=== PATIENT | male | born 1980 | race African-American/Black ===

== ENCOUNTER 2017-04-11 08:56 | Emergency (ER) | payer OTHER ==
[~2017-04-11] VITALS: Ht 182.9 cm; Wt 81.0 kg
[2017-04-11] MEDS ORDERED: HALOPERIDOL 5 MG INJ IM STA (09:19)
[2017-04-11] MEDS ORDERED: LORAZEPAM 2 MG INJ IM STA (09:19)
--- NOTE | 2017-04-11 09:20 | ERA ---
ER Documentation Chief Complaint Date/Time DATE: 04/11/17 TIME: 09:20 Chief Complaint HPI Patient is uncooperative and history is obtained primarily from [employer] and transferring paramedics. 36-year-old male brought to the ED and [employer] custody after he was found running the streets agitated, combative and uncooperative requiring restraints.Will not answer any questions. ROS Review of system is unobtainable due to the patient's clinical condition. PMhx/Soc Unknown FmHx Unknown Physical Exam Vitals Vital Signs Date Time Temp Pulse Resp B/P Pulse Ox O2 Delivery O2 Flow Rate FiO2 04/11/17 09:27 98.5 98 18 184/84 99 Room Air Physical Exam Const: Alert, agitated, combative Head: Atraumatic Eyes: Normal Conjunctiva ENT: Normal External Ears, Nose and Mouth. Neck: Full range of motion. No meningismus. Resp: Clear to auscultation bilaterally Cardio: Regular rate and rhythm, no murmurs Abd: Soft, non tender, non distended. Normal bowel sounds Skin: No petechiae or rashes Back: No midline or flank tenderness Ext: No cyanosis, or edema Neur: Awake and alert. Moves all extremities with 5/5 strength. No facial droop Psych: Agitated, combative and responding to internal stimuli Result Diagram: 04/11/17 1111 04/11/17 1111 Results 24 hrs Laboratory Tests Test 04/11/17 11:11 04/11/17 14:00 White Blood Count 8.110^3/ul Red Blood Count 4.2310^6/ul Hemoglobin 12.4g/dl Hematocrit 37.1% Mean Corpuscular Volume 87.7fl Mean Corpuscular Hemoglobin 29.3pg Mean Corpuscular Hemoglobin Concent 33.4g/dl Red Cell Distribution Width 14.3% Platelet Count 96243^3/UL Mean Platelet Volume 8.9fl Neutrophils % 70.6% Lymphocytes % 22.7% Monocytes % 4.9% Eosinophils % 0.7% Basophils % 0.9% Nucleated Red Blood Cells % 0.0/100WBC Neutrophils # 5.710^3/ul Lymphocytes # 1.810^3/ul Monocytes # 0.410^3/ul Eosinophils # 0.110^3/ul Basophils # 0.110^3/ul Nucleated Red Blood Cells # 0.010^3/ul Sodium Level 141mmol/L Potassium Level 3.8mmol/L Chloride Level 101mmol/L Carbon Dioxide Level 27mmol/L Anion Gap 17 Blood Urea Nitrogen 11mg/dl Creatinine 0.69mg/dl Glucose Level 86mg/dl Calcium Level 9.2mg/dl Total Bilirubin 0.4mg/dl Direct Bilirubin 0.00mg/dl Indirect Bilirubin 0.4mg/dl Aspartate Amino Transf (AST/SGOT) 36IU/L Alanine Aminotransferase (ALT/SGPT) 42IU/L Alkaline Phosphatase 87IU/L Total Protein 7.3g/dl Albumin 4.2g/dl Globulin 3.10g/dl Albumin/Globulin Ratio 1.35 Thyroid Stimulating Hormone (TSH) 4.200MIU/L Salicylates Level < 1.0mg/dl Acetaminophen Level < 10.0ug/ml Ethyl Alcohol Level < 10.0mg/dl Urine Color YELLOW Urine Clarity CLEAR Urine pH 6.0 Urine Specific [place] 1.017 Urine Ketones NEGATIVEmg/dL Urine Nitrite NEGATIVEmg/dL Urine Bilirubin NEGATIVEmg/dL Urine Urobilinogen NEGATIVEmg/dL Urine Leukocyte Esterase NEGATIVELeu/ul Urine Hemoglobin NEGATIVEmg/dL Urine Glucose NEGATIVEmg/dL Urine Total Protein NEGATIVEmg/dl Urine Opiates Screen Negative Urine Barbiturates Negative Urine Amphetamines Screen POSITIVE Urine Benzodiazepines Screen Negative Urine Cocaine Screen Negative Urine Cannabinoids Negative Current Medications Medications (Trade) Dose Ordered Sig/Manish Route PRN Reason Start Time Stop Time Status Last Admin Dose Admin Lorazepam (Ativan) 2 mg ONCE STAT IM 04/11/17 09:19 04/11/17 09:21 DC 04/11/17 09:37 Haloperidol (Haldol) 5 mg ONCE STAT IM 04/11/17 09:19 04/11/17 09:21 DC 04/11/17 09:36 Benztropine Mesylate (Cogentin) 2 mg ONCE ONCE IM 04/11/17 09:30 04/11/17 09:31 DC Procedures/MDM DOCUMENTS REVIEWED: ED nurse no prior records ED COURSE: Patient agitated and combative required physical and chemical restraints. REEXAMINATION/REEVALUATION: Time: 11:00. Sleeping but arousable. Time: 13:45. Arousable and provided a urine sample but still uncooperative with exam. Time: 14:45. Still lethargic and unable to cooperate with psychiatric evaluation. MEDICAL DECISION MAKIN-year-old male brought to the ED and [employer] custody after he was found running the streets agitated, combative and uncooperative requiring restraints. Patient presents with acute psychosis and methamphetamine intoxication. Based on history, physical exam and appropriate lab tests, I appreciate no evidence of significant life threatening injury or illness that precludes psychiatric hospitalization. There are no toxic, infectious, metabolic, CLINICAL RESEARCH NURSE or other unstable co-morbidities. Patient is thus medically clear for psychiatric evaluation. OBSERVATION NOTE: At 09:45 the patient was entered into observation status to establish the need for admission. During this time the patient was treated for acute psychosis. Additionally, extensive evaluation including, CBC, chemistry, urinalysis and urine drug screen were preformed and results interpreted as above. Vitals signs were monitored and multiple repeat exams were performed. At 14:45 the patient was reexamined; VSS, afebrile, but still lethargic and unable to cooperate with psychiatric evaluation. Based on these findings the patient will require ongoing observation to determine the need for admission. Cares endorsed to Dr. Yao. CALLS/CONSULTS: Time 11:30, Dr. Villarreal, Telehealth Psychiatry. Unable to evaluate the patient at this time. Will attempt again. PATIENT CARE TRANSITIONED: Time: 15:00, Dr. Cabral. Departure Diagnosis: Primary Impression: Acute psychosis Additional Impression: Methamphetamine abuse Condition: Serious MARIANNA ROSE MD Apr 11, 2017 09:20
[2017-04-11 09:25] VITALS: Ht 182.9 cm; Wt 81.0 kg
[2017-04-11] MEDS ORDERED: BENZTROPINE 2 MG INJ IM ONE (09:30)
[2017-04-11 11:24] LABS: BASOPHIL # 0.1 10^3/ul (0.0-0.1); BASOPHILS % 0.9 % (0.0-2.0); EOSINOPHILS # 0.1 10^3/ul (0.0-0.5); EOSINOPHILS % 0.7 % (0.0-7.0); HEMATOCRIT 37.1 % (42.0-52.0); HEMOGLOBIN 12.4 g/dl (14.0-18.0); LYMPHOCYTES # 1.8 10^3/ul (0.8-2.9); LYMPHOCYTES % 22.7 % (15.0-51.0); MEAN CORPUSCULAR HEMOGLOBIN 29.3 pg (29.0-33.0); MEAN CORPUSCULAR HGB CONC 33.4 g/dl (32.0-37.0); MEAN CORPUSCULAR VOLUME 87.7 fl (82.0-101.0); MEAN PLATELET VOLUME 8.9 fl (7.4-10.4); MONOCYTE # 0.4 10^3/ul (0.3-0.9); MONOCYTES % 4.9 % (0.0-11.0); NEUTROPHIL # 5.7 10^3/ul (1.6-7.5); NEUTROPHILS % 70.6 % (39.0-77.0); PLATELET COUNT 332 10^3/UL (140-415); RED BLOOD COUNT 4.23 10^6/ul (4.70-6.10); RED CELL DISTRIBUTION WIDTH 14.3 % (11.5-14.5); WHITE BLOOD COUNT 8.1 10^3/ul (4.8-10.8)
[2017-04-11 11:47] LABS: ALANINE AMINOTRANSFERASE 42 IU/L (13-69); ALBUMIN 4.2 g/dl (3.3-4.9); ALBUMIN/GLOBULIN RATIO 1.35; ALKALINE PHOSPHATASE 87 IU/L (42-121); ANION GAP 17 (8-16); ASPARTATE AMINO TRANSFERASE 36 IU/L (15-46); BILIRUBIN,INDIRECT 0.4 mg/dl (0-1.1); BILIRUBIN,TOTAL 0.4 mg/dl (0.2-1.3); BLOOD UREA NITROGEN 11 mg/dl (7-20); CALCIUM 9.2 mg/dl (8.4-10.2); CARBON DIOXIDE 27 mmol/L (21-31); CHLORIDE 101 mmol/L (97-110); CREATININE 0.69 mg/dl (0.61-1.24); GLUCOSE 86 mg/dl (70-220); POTASSIUM 3.8 mmol/L (3.5-5.1); SODIUM 141 mmol/L (135-144); TOTAL PROTEIN 7.3 g/dl (6.1-8.1)
[2017-04-11 11:59] LABS: ACETAMINOPHEN < 10.0 ug/ml (10.0-30.0); SALICYLATE < 1.0 mg/dl (5.0-30.0)
[2017-04-11 12:00] LABS: ETHANOL < 10.0 mg/dl
--- NOTE | 2017-04-11 12:52 | PSY ---
Date/Time of Note Date/Time of Note DATE: 04/11/17 TIME: 12:50 Psychiatric Subjective Eval Consent Pt consented to telemedicine: Yes Subjective Evaluation Patient location: emergency Chief Complaint: [employer] police on hold for running through streets Reason for consult: psychosis, agitation History of present illness d/w Dr Murphy. Pt was BIB EMS confused and combative, had to be chemically restrained. Pt is alseep, snoring loudly, RN tried to wake him up but to no avail. Please call back then the pt will be fully awake, alert and cooperative with the eval. Psychiatric Objective Eval Mental Status Examination: Laboratory Results Laboratory Tests Test 04/11/17 11:11 White Blood Count 8.110^3/ul Red Blood Count 4.2310^6/ul Hemoglobin 12.4g/dl Hematocrit 37.1% Mean Corpuscular Volume 87.7fl Mean Corpuscular Hemoglobin 29.3pg Mean Corpuscular Hemoglobin Concent 33.4g/dl Red Cell Distribution Width 14.3% Platelet Count 47343^3/UL Mean Platelet Volume 8.9fl Neutrophils % 70.6% Lymphocytes % 22.7% Monocytes % 4.9% Eosinophils % 0.7% Basophils % 0.9% Nucleated Red Blood Cells % 0.0/100WBC Neutrophils # 5.710^3/ul Lymphocytes # 1.810^3/ul Monocytes # 0.410^3/ul Eosinophils # 0.110^3/ul Basophils # 0.110^3/ul Nucleated Red Blood Cells # 0.010^3/ul Sodium Level 141mmol/L Potassium Level 3.8mmol/L Chloride Level 101mmol/L Carbon Dioxide Level 27mmol/L Anion Gap 17 Blood Urea Nitrogen 11mg/dl Creatinine 0.69mg/dl Glucose Level 86mg/dl Calcium Level 9.2mg/dl Total Bilirubin 0.4mg/dl Direct Bilirubin 0.00mg/dl Indirect Bilirubin 0.4mg/dl Aspartate Amino Transf (AST/SGOT) 36IU/L Alanine Aminotransferase (ALT/SGPT) 42IU/L Alkaline Phosphatase 87IU/L Total Protein 7.3g/dl Albumin 4.2g/dl Globulin 3.10g/dl Albumin/Globulin Ratio 1.35 Thyroid Stimulating Hormone (TSH) 4.200MIU/L Salicylates Level < 1.0mg/dl Acetaminophen Level < 10.0ug/ml Ethyl Alcohol Level < 10.0mg/dl ANDREAS HUITRON MD Apr 11, 2017 12:52
[2017-04-11 14:56] LABS: ADD UMIC NO; UR ASCORBIC ACID NEGATIVE (NEGATIVE); UR BILIRUBIN (Dip) NEGATIVE (NEGATIVE); UR BLOOD (Dip) NEGATIVE (NEGATIVE); UR CLARITY CLEAR (CLEAR); UR COLOR YELLOW (YELLOW); UR GLUCOSE (Dip) NEGATIVE (NEGATIVE); UR KETONES (Dip) NEGATIVE (NEGATIVE); UR LEUKOCYTE ESTERASE (Dip) NEGATIVE Leu/ul (NEGATIVE); UR NITRITE (Dip) NEGATIVE (NEGATIVE); UR SPECIFIC GRAVITY (Dip) 1.017 (1.003-1.030); UR TOTAL PROTEIN (Dip) NEGATIVE (NEGATIVE); UR UROBILINOGEN (Dip) NEGATIVE (NEGATIVE)
[2017-04-11 15:30] LABS: BARBITURATES Negative (NEGATIVE); BENZODIAZEPINES Negative (NEGATIVE); CANNABINOIDS Negative (NEGATIVE); COCAINE Negative (NEGATIVE); OPIATES Negative (NEGATIVE)
--- NOTE | 2017-04-11 22:46 | PSY ---
Date/Time of Note Date/Time of Note DATE: 04/11/17 TIME: 22:40 Psychiatric Subjective Eval Consent Pt consented to telemedicine: Yes Subjective Evaluation Patient location: emergency Chief Complaint: [employer] on hold for running through streets Reason for consult: psychosis, agitation Medical history Problems Medical Problems: (1) Acute psychosis Status: Acute Psychiatric Objective Eval Mental Status Examination: Laboratory Results Laboratory Tests Test 04/11/17 11:11 04/11/17 14:00 White Blood Count 8.110^3/ul Red Blood Count 4.2310^6/ul Hemoglobin 12.4g/dl Hematocrit 37.1% Mean Corpuscular Volume 87.7fl Mean Corpuscular Hemoglobin 29.3pg Mean Corpuscular Hemoglobin Concent 33.4g/dl Red Cell Distribution Width 14.3% Platelet Count 32814^3/UL Mean Platelet Volume 8.9fl Neutrophils % 70.6% Lymphocytes % 22.7% Monocytes % 4.9% Eosinophils % 0.7% Basophils % 0.9% Nucleated Red Blood Cells % 0.0/100WBC Neutrophils # 5.710^3/ul Lymphocytes # 1.810^3/ul Monocytes # 0.410^3/ul Eosinophils # 0.110^3/ul Basophils # 0.110^3/ul Nucleated Red Blood Cells # 0.010^3/ul Sodium Level 141mmol/L Potassium Level 3.8mmol/L Chloride Level 101mmol/L Carbon Dioxide Level 27mmol/L Anion Gap 17 Blood Urea Nitrogen 11mg/dl Creatinine 0.69mg/dl Glucose Level 86mg/dl Calcium Level 9.2mg/dl Total Bilirubin 0.4mg/dl Direct Bilirubin 0.00mg/dl Indirect Bilirubin 0.4mg/dl Aspartate Amino Transf (AST/SGOT) 36IU/L Alanine Aminotransferase (ALT/SGPT) 42IU/L Alkaline Phosphatase 87IU/L Total Protein 7.3g/dl Albumin 4.2g/dl Globulin 3.10g/dl Albumin/Globulin Ratio 1.35 Thyroid Stimulating Hormone (TSH) 4.200MIU/L Salicylates Level < 1.0mg/dl Acetaminophen Level < 10.0ug/ml Ethyl Alcohol Level < 10.0mg/dl Urine Color YELLOW Urine Clarity CLEAR Urine pH 6.0 Urine Specific [place] 1.017 Urine Ketones NEGATIVEmg/dL Urine Nitrite NEGATIVEmg/dL Urine Bilirubin NEGATIVEmg/dL Urine Urobilinogen NEGATIVEmg/dL Urine Leukocyte Esterase NEGATIVELeu/ul Urine Hemoglobin NEGATIVEmg/dL Urine Glucose NEGATIVEmg/dL Urine Total Protein NEGATIVEmg/dl Urine Opiates Screen Negative Urine Barbiturates Negative Urine Amphetamines Screen POSITIVE Urine Benzodiazepines Screen Negative Urine Cocaine Screen Negative Urine Cannabinoids Negative Assessment Additional comments: IDENTIFYING INFORMATION: 36 year old Male patient who is currently located at the hospital and for whom psychiatric consultation was requested. SOURCES OF INFORMATION: The patient who appears to be somewhat reliable and the medical records; the nursing staff. CHIEF COMPLAINT: "nothing". HISTORY OF PRESENT ILLNESS: The patient was interviewed via telemedicine in the presence of and under the supervision of nursing staff of the hospital. The consent to conducting this interview via telemedicine was obtained by the nursing staff at the hospital. ARMIDA Garrido reports that the patient was running in the street combative. The pt was combative and had to be chemically and physically restrained while in the ER. The patient reports that he was harassed by the police for no clear reason. He reports that he has no idea why he was brought in by the police. He reports that he is not happy nor depressed. He is not sure whether he has anhedonia or not. He reports that he feels tired, denies having AH, VH, SI, HI, low appetite, insomnia. The patient denies using alcohol heavily or regularly. The patient denies using any substances initially then reports that he uses meth occasionally via [facility]. Last time was yesterday. In terms of past psychiatric history, the patient reports having a history of past psychiatric hospitalizations; he reports that they thought he was crazy, bipolar. The patient reports having a history of no past suicide attempts. He reports that no meds have worked for him in the past. PAST MEDICAL HISTORY: none. CURRENT MEDICATIONS: none. ALLERGIES TO MEDICATIONS: NKDA. SOCIAL HISTORY: homeless, single, 4 children; employed as a rapper; no firearms at home. LABORATORY TESTS: UDS + amph, no alcohol detected, CMP WNL, TSH WNL, CBC with Hb 12.4, Hct 37.1. REVIEW OF SYSTEMS: Constitutional (e.g., fever, weight loss): negative; Eyes, Ears, Nose, Mouth, Throat: negative; Cardiovascular: negative; Respiratory: negative; Gastrointestinal: negative; Genitourinary: negative; Musculoskeletal: negative; Integumentary (skin and/or breast): negative; Neurological: negative; Psychiatric: as per HPI; Endocrine: negative; Hematologic/Lymphatic: negative; Allergic/Immunologic: negative. MENTAL STATUS EXAMINATION: General Appearance and Behavior: somewhat agitated, partially cooperative with most of the interview, distant and rude with the current interviewer, makes poor eye contact, poorly groomed, increased psychomotor activity, no abnormal movements noted. Speech: Normal rate, regular rhythm, normal latency, normal volume, decreased amount. Flow of thought: tangential, illogical, not goal-directed; logical at other times.. Content of thought: + delusions, denies having auditory or visual hallucinations , denies having suicidal ideation; no homicidal ideation. Mood: "I don't know". Affect: angry, flat, decreased range of reactivity. Attention: normal based on the interview. Insight: poor. Judgment: poor. Memory: normal based on the interview. Sensorium: alert and oriented to person, not oriented to date, place. ASSESSMENT: The patient's presentation and history are consistent with the diagnosis of unspecified psychotic disorder, stimulant use disorder. The patient presents with psychosis in the context of stimulant use and medication noncompliance. The patient was combative with staff, and had to be chemically and physically restrained. The patient has a history of prior psychiatric hospitalizations. Cora I: unspecified psychotic disorder, stimulant use disorder. Cora II: Deferred. Cora III: see PMH. Cora IV: social stressors. Cora V: GAF: 10. PLAN: - Medication management: Would start risperdal 0.5 mg po bid. Would start haloperidol 5 mg IM PRN severe agitation q4 hours. Would start diphenhydramine 50 mg IM PRN severe agitation q4 hours. Would start lorazepam 2 mg IM PRN severe agitation q4 hours Will defer to the inpatient psychiatry team for other medication changes. - Labs: No other laboratory tests are needed at this time. - Psychotherapy: Provided supportive psychotherapy and psychoeducation. - Disposition: Would recommend involuntary admission to the inpatient psychiatric unit given the severity of the patient's psychiatric condition and the fact that the patient is an imminent danger to self and/or others so long as the patient has been cleared medically for admission to psychiatry. Inpatient psychiatric admission is at this time the least restrictive environment where the patient can receive the psychiatric care that is needed. Would place on suicide precautions. The patient fulfills criteria for being placed on involuntary hold due to being a danger to self or others or gravely disabled. Discussed about the above plan with Dr. Luna. JIM KHANNA MD Apr 11, 2017 22:46
[2017-04-11] MEDS ORDERED: LORAZEPAM 2 MG INJ IM ONE (23:30)
[2017-04-11] MEDS ORDERED: HALOPERIDOL 5 MG INJ IM ONE (23:30)
[2017-04-11] MEDS ORDERED: DIPHENHYDRAMINE 50 MG INJ IM ONE (23:30)
[2017-04-13 11:48] VITALS: BP 119/65; PULSE 90; RESP 20; TEMP 98.3
== END 2017-04-13 12:03 ==
LOC: E/R 08:56
DX: F23 Brief psychotic disorder (principal); F15.10 Other stimulant abuse, uncomplicated
CPT/HCPCS: 80053; 80306; 80307; 81003; 84443; 85025; 96372; J1200; J1630; J2060; Z7502; J0515

== ENCOUNTER 2017-08-31 20:42 | Emergency (ER) | payer SELFPAY ==
[~2017-08-31] VITALS: Ht 172.7 cm; Wt 81.4 kg
[2017-08-31 20:45] VITALS: Ht 172.7 cm; Wt 81.4 kg
== END 2017-08-31 23:21 | disposition left against medical advice (07) ==
LOC: FTE 20:42
DX: Z53.21 Procedure and treatment not carried out due to patient leaving prior to being seen by health care provider (principal)